=== PATIENT | female | born 1955 | race Caucasian/White ===

== ENCOUNTER 2021-03-31 17:49 | Emergency (ER) | payer OTHER ==
[~2021-03-31] VITALS: Ht 160 cm; Wt 113.4 kg
[2021-03-31] MEDS ORDERED: LEVO-T25 MCG PO (18:24)
[2021-03-31] MEDS ORDERED: RAYOS5 MG PO (18:24)
[2021-03-31] MEDS ORDERED: HYDROCHLOROTHIA25 M1 PO (18:25)
[2021-03-31] MEDS ORDERED: METHOTREXATE 22.5 M1 PO (18:25)
[2021-03-31 18:33] LABS: ABSOLUTE NEUTROPHILS 10.4 thou/uL (1.4-8.2); BASOPHILS 1.3 % (0.0-2.0); EOSINOPHILS 0.6 % (0.0-3.0); HEMATOCRIT 38.1 % (37.0-47.0); HEMOGLOBIN 12.7 gm/dL (12.0-15.0); LYMPHOCYTES 17.4 % (24.0-44.0); MCH 29.8 pg (26.0-34.0); MCHC 33.3 g/dL (28.0-37.0); MCV 89.5 fL (80.0-100.0); MONOCYTES 4.7 % (1.0-8.0); PLATELET COUNT 310 thou/uL (150-400); RBC 4.26 mil/uL (4.20-5.00); RDW 14.8 % (10.5-14.5); WBC 13.7 thou/uL (4.0-11.0)
[2021-03-31 18:41] LABS: CREATININE 0.9 mg/dL (0.6-1.0); POTASSIUM 3.9 mmol/L (3.5-5.1)
[2021-03-31 18:47] LABS: ALBUMIN 3.5 g/dL (3.4-5.0); TOTAL BILIRUBIN 0.3 mg/dL (0.2-1.0); TOTAL PROTEIN 6.9 g/dL (6.4-8.2)
[2021-03-31 19:13] LABS: URINE BILIRUBIN NEGATIVE (Negative); URINE BLOOD NEGATIVE (Negative); URINE CLARITY CLEAR; URINE COLOR YELLOW; URINE GLUCOSE-RANDOM* 2+ (Negative); URINE KETONES NEGATIVE (Negative); URINE LEUKOCYTES-REFLEX NEGATIVE (Negative); URINE NITRITE-REFLEX NEGATIVE (Negative); URINE PROTEIN (DIPSTICK) NEGATIVE (Negative); URINE SPECIFIC GRAVITY 1.015 (1.005-1.035); URINE UROBILINOGEN 0.2 E.U./dl (0.2-1.0)
[2021-03-31 20:49] VITALS: BP 145/63
--- NOTE | 2021-04-01 07:10 | EKG ---
[facility] [place] [address] ELECTROCARDIOGRAM REPORT Name: ROMAN HORNE [id number] Admission: 03/31/21 Attend Phys: Discharge: 03/31/21 Date of : 55 Report #: [id number] [facility] ED Test Date: 2021-03-31 Test Time: 18:00:36 Pat Name: ROMAN HORNE Department: Room: Gender: F Marking Stitcher: RADHA : 1955 Requested By: Rainer Stover Order Number: [id number] MD: Santana Urbano Measurements Intervals [place] Rate: 78 P: 40 LA: 153 QRS: -6 QRSD: 76 T: 49 QT: 385 QTc: 439 Interpretive Statements Sinus rhythm Low voltage, precordial leads LVH by voltage Anterior Q waves, possibly due to LVH No previous ECG available for comparison Electronically Signed On 04-01-2021 7:10:42 [employer]PER[employer] by Santana Urbano [email or web address] <ELECTRONICALLY SIGNED> By: Santana Urbano MD, [facility] 04/01/21 [address] [facility] Santana Urbano MD FACC /EPI
== END 2021-03-31 20:56 | disposition home or self-care (01) ==
LOC: ER 17:49
PROVIDERS: Emergency Medicine; Nurse Practitioner
DX: M54.6 Pain in thoracic spine (principal); Z79.891 Long term (current) use of opiate analgesic; Z79.899 Other long term (current) drug therapy; Z88.8 Allergy status to other drugs, medicaments and biological substances